=== PATIENT | female | born 1990 | race Caucasian/White ===

== ENCOUNTER 2017-02-24 15:00 | Emergency (ER) | payer MEDICAID ==
[2017-02-24 18:48] LABS: BASOPHIL % 0.4 % (0-2)
[2017-02-24 18:50] LABS: PLATELET COUNT 468 x10^3mcL (130-400); RED CELL DISTRIBUTION WIDTH 16.9 % (11.5-14.5)
[2017-02-24 20:41] VITALS: BP 136/84
== END 2017-02-24 20:41 | disposition home or self-care (01) ==
LOC: ED 15:00
PROVIDERS: Emergency Medicine
DX: O03.9 Complete or unspecified spontaneous abortion without complication (principal); E11.65 Type 2 diabetes mellitus with hyperglycemia; E66.01 Morbid (severe) obesity due to excess calories
CPT/HCPCS: 82962